=== PATIENT | male | born 1990 | race Caucasian/White ===

== ENCOUNTER 2023-04-04 20:05 | Emergency (ER) | payer OTHER ==
[~2023-04-04] VITALS: Ht 185.4 cm; Wt 68.0 kg
[2023-04-04 20:10] VITALS: BP_SYST 129; PULSE 79; RESP 16; TEMP 98.5; O2SAT 99
[2023-04-04] MEDS ORDERED: NAPR-1172 PO (23:40)
[2023-04-04 23:54] VITALS: BP_SYST 129; PULSE 79; RESP 16; TEMP 98.5; O2SAT 99
== END 2023-04-04 23:55 | disposition home or self-care (01) ==
LOC: SED 20:05
DX: S52.122A Displaced fracture of head of left radius, initial encounter for closed fracture (principal); Z79.899 Other long term (current) drug therapy; V18.4XXA Pedal cycle driver injured in noncollision transport accident in traffic accident, initial encounter; Y93.89 Activity, other specified; Y92.89 Other specified places as the place of occurrence of the external cause; Y99.8 Other external cause status
CPT/HCPCS: 73090; 99284